=== PATIENT | male | born 1945 | race Caucasian/White ===

== ENCOUNTER → 2017-02-15 | Outpatient (CLI) | payer MEDICARE ==
[~2017-02-15] MED LIST: ASPI325T PO; ASPI81TAEC PO; FERR325T3 PO; NEUR100C PO; PLAV1TAB2 PO; PRAV1TAB39 PO; RANI15TA PO; SILV50CR TOP; VITA500T88 PO; ZOLO100T PO
[2017-02-15 12:23] LABS: ANION GAP 9 MEQ/L (8-16); BLOOD UREA NITROGEN 10 MG/DL (7-18); CALCIUM LEVEL 8.8 MG/DL (8.8-10.2); CARBON DIOXIDE LEVEL 24 MEQ/L (21-32); CHLORIDE LEVEL 102 MEQ/L (98-107); CREATININE FOR GFR 0.74 MG/DL (0.70-1.30); GLOMERULAR FILTRATION RATE > 60.0 (>42); GLUCOSE, FASTING 81 MG/DL (83-110); POTASSIUM SERUM 4.3 MEQ/L (3.5-5.1); SODIUM LEVEL 135 MEQ/L (136-145)
== END ==
LOC: M LAB 10:27
PROVIDERS: ATTEND Internal Medicine Cardiovascular Disease
DX: I25.10 Atherosclerotic heart disease of native coronary artery without angina pectoris (principal)

== ENCOUNTER → 2017-02-19 | Outpatient (CLI) | payer MEDICARE ==
--- NOTE | 2017-02-19 10:10 | REP ---
MRA CAROTIDS WITHOUT AND WITH CONTRAST: HISTORY: Carotid artery disease. CONTRAST: ProHance 25 mL. Unenhanced 2D [id number] and contrast enhanced MR angiography were performed at the level of the carotid bifurcations. There is moderate stenosis of 65% of the right internal carotid artery 10 mm from its origin. There is mild stenosis of 15% of the right external carotid artery at its origin. The distal left common carotid artery and origins of the left external and internal carotid arteries are normal. The left vertebral artery is not seen in the unenhanced 2-D [id number] MR angiography sequence. The left vertebral artery is seen in the contrast enhanced MR angiography sequence. There is at least mild stenosis at the origin of the left vertebral artery. The left vertebral artery is dominant. There is loss of the normal hyperintense signal in the vertebral arteries at the C1 level. This is likely secondary to saturation effect. IMPRESSION: 1. Moderate stenosis of 65% of the right internal carotid artery 10 mm from its origin. 2. There is at least mild stenosis at the origin of the left vertebral artery. Signed by Israel Alicia MD 02/19/2017 10:58 A
== END ==
LOC: M RAD 06:42
PROVIDERS: ATTEND Internal Medicine Cardiovascular Disease
DX: I65.23 Occlusion and stenosis of bilateral carotid arteries (principal)
CPT/HCPCS: 70549; A9576

== ENCOUNTER 2017-08-09 20:31 | Emergency (ER) | payer MEDICARE ==
[2017-08-09 21:13] LABS: BASO % 0.3 % (0.0-1.0); EOS # 0.2 10^3/uL (0.0-0.50); EOS % 3.3 % (0.0-3.0); HEMATOCRIT 37.4 % (42.0-52.0); HEMOGLOBIN 13.2 g/dl (14.0-18.0); IMMATURE GRANULOCYTE % 0.3 % (0-3.0); LYMPH # 1.7 10^3/uL (1.5-4.5); MEAN CORPUSCULAR HEMOGLOBIN 32.8 pg (27.0-33.0); MEAN CORPUSCULAR HGB CONC 35.3 g/dl (32.0-36.5); MEAN CORPUSCULAR VOLUME 92.8 fl (80.0-96.0); MONO # 0.6 10^3/uL (0.0-0.8); MONO % 8.9 % (0.0-5.0); NEUTROPHILS # 4.4 10^3/uL (1.8-7.7); NEUTROPHILS % 63.2 % (36.0-66.0); PLATELET COUNT, AUTOMATED 250 10^3/uL (150-450); RED BLOOD COUNT 4.03 10^6/uL (4.30-6.10); RED CELL DISTRIBUTION WIDTH 13.4 % (11.5-14.5); WHITE BLOOD COUNT 6.9 10^3/uL (4.0-10.0)
[2017-08-09 21:28] LABS: ANION GAP 9 MEQ/L (8-16); BLOOD UREA NITROGEN 15 MG/DL (7-18); CALCIUM LEVEL 8.5 MG/DL (8.8-10.2); CARBON DIOXIDE LEVEL 23 MEQ/L (21-32); CHLORIDE LEVEL 105 MEQ/L (98-107); CPK CREATINE PHOSPHOKINASE 37 U/L (39-308); CREATININE FOR GFR 1.11 MG/DL (0.70-1.30); GLOMERULAR FILTRATION RATE > 60.0 (>42); GLUCOSE, FASTING 137 MG/DL (70-100); POTASSIUM SERUM 3.9 MEQ/L (3.5-5.1); SODIUM LEVEL 137 MEQ/L (136-145); TROPONIN I < 0.02 NG/ML (< 0.10)
[2017-08-09] MEDS ORDERED: ISOVUE-370 76% 100ML VIAL (Q9967) As Ordered (22:27)
[2017-08-09] MEDS: CLOPIDOGREL 300 MG TAB (PLAVIX) PO (23:57)
[2017-08-10] MEDS: ASPIRIN 81 MG CHEW TABLET PO (00:40)
[2017-08-10] MEDS: METOPROLOL TART 50 MG TAB PO (00:40)
== END 2017-08-10 01:30 | disposition short-term general hospital (02) ==
LOC: M ED 08-10 01:30
DX: I25.110 Atherosclerotic heart disease of native coronary artery with unstable angina pectoris (principal); R91.8 Other nonspecific abnormal finding of lung field; R06.02 Shortness of breath; I11.9 Hypertensive heart disease without heart failure; E78.5 Hyperlipidemia, unspecified; J44.9 Chronic obstructive pulmonary disease, unspecified; I25.2 Old myocardial infarction; C34.92 Malignant neoplasm of unspecified part of left bronchus or lung; Z95.1 Presence of aortocoronary bypass graft; F17.210 Nicotine dependence, cigarettes, uncomplicated; Z88.5 Allergy status to narcotic agent; Z79.899 Other long term (current) drug therapy; Z79.82 Long term (current) use of aspirin
CPT/HCPCS: Q9967

== ENCOUNTER → 2018-08-04 | Outpatient (CLI) | payer MEDICARE ==
--- NOTE | 2018-08-04 15:16 | REP ---
Chest two views HISTORY: Lung carcinoma Comparison: 08/09/2017 The lungs are hyperinflated. Postoperative change is present in the left hemithorax. There is retraction of the left hilum toward the lung apex. Pleural parenchymal density is present in the left lung apex. This is slightly decreased compared to the previous study. The right lung is clear. The heart is normal in size. The pulmonary vasculature is normal in appearance. The bony structure is intact. IMPRESSION: There is pleural parenchymal density in the left lung apex that is slightly decreased compared to the previous study. The findings are suspicious for malignancy. CT of the chest may be helpful for further evaluation. Electronically Signed by Israel Alicia MD 08/04/2018 03:08 P
== END ==
LOC: M WUC 14:03
PROVIDERS: ATTEND Physician Assistant
DX: R91.8 Other nonspecific abnormal finding of lung field (principal)

== ENCOUNTER → 2018-08-18 | Outpatient (CLI) | payer MEDICARE ==
[~2018-08-18] MED LIST changes: +ISOVUE-370 76% 125ML VIAL (Q9967 PER ML) As Ordered ONE
--- NOTE | 2018-08-18 10:29 | REP ---
CT CHEST WITH IV CONTRAST: HISTORY: History of left chest wall mass. New onset chest pain. Malignant neoplasm, abnormal weight loss. Rule out metastatic disease of bone. Comparison chest CT study, August 09, 2017. There is a comparison chest CT also available from November 28, 2015. CT CONTRAST DOSE: 75 mL of intravenous Isovue 370. CT FINDINGS: There is unfortunately evidence of rapid progression with a new area of bone destruction involving the anterior and lateral segment of the left 2nd rib. There is associated expansile heterogeneously enhancing soft tissue mass at the level of the rib destruction involving the left chest wall. This measures 4.4 x 2.6 x 3.8 cm. This was not present 9 days ago. There is chronic collapse and excavation in the left upper lobe similar to the prior study with areas of calcification and air bronchograms. There is heterogeneous mass-like enhancement in the superior portion of this and the in the inferomedial portion. There is progressive mediastinal lymphadenopathy in the interval since the study done 9 days earlier. The largest lymph node is in the precarinal space measuring 1.7 x 3.1 cm in diameter. There is a spiculated nodule the right upper lobe which measures 16 mm today. This has increased in size from August 09, 2017 as well when it measured 10 mm. There is a new 5 mm nodule elsewhere in the right upper lobe anteriorly. Patient is status post median sternotomy. No other bony destructive lesion is appreciated. No adrenal masses observed. Visualized upper abdominal structures are unremarkable. No axillary or visible supraclavicular adenopathy is seen. IMPRESSION: Rapid progression in neoplastic findings in the chest including a new destructive left 2nd rib and chest wall lesion and progressive mediastinal adenopathy and enlargement of a spiculated nodule in the right upper lobe, all as a change from the recent prior study dated August 09, 2017. Electronically Signed by Maulik Ozuna MD 08/18/2018 12:07 P
== END ==
LOC: M RAD 07:54
PROVIDERS: ATTEND Physician Assistant
DX: C34.90 Malignant neoplasm of unspecified part of unspecified bronchus or lung (principal); R63.4 Abnormal weight loss
CPT/HCPCS: 71260; Q9967